=== PATIENT | female | born 1990 | race Caucasian/White ===

== ENCOUNTER → 2018-05-06 | Outpatient (CLI) | payer MEDICAID ==
[~2018-05-06] MED LIST: ACHD5005 PO; AMOX500C2 PO; BIRTH CONTROL PILL PO; CRUT1EAC7 MC; DCS100C PO; DIPH25TA82 PO; DOXY-13 PO; ETON1VAG; FRS325T PO; HYDR-3720 PO; HYDR1TAB86 PO; HYDR25TA4; IBP600T1 PO; IBP800T PO; IBUP-1780 PO; L-NO1TBD; LANS15CA PO; NFPRILOC40 PO; NORE0.357; OXYC-12 PO; POTA10CA43; PRD20T PO; PREN-105 PO; PREN1TAB25 PO; SULF1TAB38 PO
[2018-05-06 11:18] LABS: AMPHETAMINE SCREEN, URINE NEGATIVE (NEGATIVE); BARBITURATE SCREEN URINE NEGATIVE (NEGATIVE); BENZODIAZEPINES SCREEN URINE NEGATIVE (NEGATIVE); CANNABINOID SCREEN, URINE NEGATIVE (NEGATIVE); COCAINE SCREEN URINE NEGATIVE (NEGATIVE); METHADONE STAT NEGATIVE (NEGATIVE); METHAMPHETAMINE SCREEN URINE S NEGATIVE (NEGATIVE); OPIATE SCREEN URINE NEGATIVE (NEGATIVE); OXYCODONE STAT NEGATIVE (NEGATIVE); PROPOXYPHENE STAT NEGATIVE (NEGATIVE); TRICYCLIC ANTIDEPRESSANTS SCRE NEGATIVE (NEGATIVE)
[2018-05-06 12:37] LABS: BASOPHILS % (AUTO) 0 % (0-10); EOSINOPHILS # (AUTO) 0.3 10^3/uL (0.0-0.3); EOSINOPHILS % (AUTO) 3 % (0-10); HEMATOCRIT 44 % (35-52); HEMOGLOBIN 15.4 G/DL (11.5-16.0); LYMPHOCYTES % (AUTO) 21 % (12-44); MEAN CORPUSCULAR HEMOGLOBIN 30 PG (25-34); MEAN CORPUSCULAR HGB CONC 35 G/DL (32-36); MEAN CORPUSCULAR VOLUME 88 FL (80-99); MEAN PLATELET VOLUME 11.3 FL (7.4-10.4); MONOCYTES # (AUTO) 0.6 X 10^3 (0.0-1.0); MONOCYTES % (AUTO) 6 % (0-12); NEUTROPHILS # (AUTO) 6.5 X 10^3 (1.8-7.8); NEUTROPHILS % (AUTO) 69 % (42-75); PLATELET COUNT 127 10^3/uL (130-400); RED CELL DISTRIBUTION WIDTH 12.6 % (10.0-14.5); WHITE BLOOD COUNT 9.4 10^3/uL (4.3-11.0)
[2018-05-06 13:39] LABS: ALANINE AMINOTRANSFERASE 77 U/L (0-55); ALBUMIN 4.3 GM/DL (3.2-4.5); ALKALINE PHOSPHATASE 87 U/L (40-136); BILIRUBIN,TOTAL 0.5 MG/DL (0.1-1.0); BUN/CREATININE RATIO 24; CALCIUM 9.2 MG/DL (8.5-10.1); CARBON DIOXIDE 14 MMOL/L (21-32); CHLORIDE 109 MMOL/L (98-107); CREATININE SERUM 0.68 MG/DL (0.60-1.30); GFR ESTIMATED > 60; GLUCOSE 96 MG/DL (70-105); POTASSIUM 4.6 MMOL/L (3.6-5.0); SODIUM 136 MMOL/L (135-145); TOTAL PROTEIN 7.8 GM/DL (6.4-8.2)
== END ==
LOC: LAB 10:18
PROVIDERS: ATTEND Family Medicine
DX: B18.2 Chronic viral hepatitis C (principal); N91.2 Amenorrhea, unspecified
CPT/HCPCS: 36415; 80053; 80306; 84702; 85025

== ENCOUNTER 2018-07-22 19:41 | Observation (INO) | payer MEDICAID ==
[~2018-07-22] VITALS: Ht 165.1 cm; Wt 83.5 kg
[2018-07-22] MEDS ORDERED: LACTATED RINGERS 1,000 ML IV ONE ×3 (19:51→22:09)
[2018-07-22] MEDS ORDERED: TETANUS,DIPTH,PERTUSS P/F (BOOSTRIX) 0.5 ML VIAL IM ONE (20:00)
--- NOTE | 2018-07-22 21:13 | Diagnostic Imaging Report ---
INDICATION: Complaining of pain. Time of exam: 9:05 PM AP view of the pelvis shows normal femoral acetabular alignment. Joint spaces are maintained. No fractures are seen. SI joints and symphysis are non-widened. IMPRESSION: No acute bony abnormality is detected. Dictated by: Dictated on workstation # [id number]
--- NOTE | 2018-07-22 21:15 | Diagnostic Imaging Report ---
INDICATION: Found down. Time of exam: 9:03 PM Comparison is made with prior chest from 06/26/2008. The heart size is normal. The pulmonary vascularity is unremarkable. The lungs are clear. No infiltrate, effusion or pneumothorax is detected. Impression: No acute cardiopulmonary process is detected. Dictated by: Dictated on workstation # [id number]
--- NOTE | 2018-07-22 21:16 | Diagnostic Imaging Report ---
PROCEDURE: CT head and CT cervical spine without contrast. TECHNIQUE: Multiple contiguous axial images were obtained through the brain and cervical spine without the use of intravenous contrast. Sagittal and coronal reformations through the cervical spine were then performed. Auto Exposure Controls were utilized during the CT exam to meet ALARA standards for radiation dose reduction. INDICATION: Found down, complaining head and neck pain. CT head: The ventricles and sulci are within normal limits. No sulcal effacement, midline shift or hemorrhage is detected. Cisterns are patent. The visualized paranasal sinuses are clear. IMPRESSION: No acute intracranial process is detected. CT cervical spine: Alignment is normal. No fracture or subluxation is seen. Prevertebral tissues are normal. Odontoid is intact. IMPRESSION: No acute bony abnormality is detected. Dictated by: Dictated on workstation # [id number]
[2018-07-22 21:17] LABS: BILIRUBIN,URINE NEGATIVE (NEGATIVE); CLARITY,URINE CLEAR; COLOR,URINE YELLOW; GLUCOSE, URINE (UA) NEGATIVE (NEGATIVE); KETONES,URINE NEGATIVE (NEGATIVE); LEUKOCYTE ESTERASE ,URINE NEGATIVE (NEGATIVE); NITRITE,URINE NEGATIVE (NEGATIVE); PH,URINE 6.5 (5-9); PROTEIN,URINE NEGATIVE (NEGATIVE); UROBILINOGEN,URINE NORMAL (NORMAL)
--- NOTE | 2018-07-22 21:22 | NUR ---
less confused. more will folow commands and is calm.
[2018-07-22 21:24] LABS: BACTERIA,URINE NEGATIVE /HPF; RBC,URINE 0-2 /HPF; WBC,URINE RARE /HPF
--- NOTE | 2018-07-22 21:24 | NUR ---
report to Rosa Woodard RN
[2018-07-22 21:31] LABS: AMPHETAMINE SCREEN, URINE NEGATIVE (NEGATIVE); BARBITURATE SCREEN URINE NEGATIVE (NEGATIVE); BENZODIAZEPINES SCREEN URINE NEGATIVE (NEGATIVE); CANNABINOID SCREEN, URINE NEGATIVE (NEGATIVE); COCAINE SCREEN URINE NEGATIVE (NEGATIVE); METHADONE STAT NEGATIVE (NEGATIVE); METHAMPHETAMINE SCREEN URINE S NEGATIVE (NEGATIVE); OPIATE SCREEN URINE NEGATIVE (NEGATIVE); OXYCODONE STAT NEGATIVE (NEGATIVE); PROPOXYPHENE STAT NEGATIVE (NEGATIVE); TRICYCLIC ANTIDEPRESSANTS SCRE NEGATIVE (NEGATIVE)
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
[2018-07-22 21:43] LABS: BASOPHILS % (AUTO) 0 % (0-10); EOSINOPHILS # (AUTO) 0.1 10^3/uL (0.0-0.3); EOSINOPHILS % (AUTO) 1 % (0-10); HEMATOCRIT 44 % (35-52); HEMOGLOBIN 14.7 G/DL (11.5-16.0); LYMPHOCYTES # (AUTO) 2.8 X 10^3 (1.0-4.0); LYMPHOCYTES % (AUTO) 36 % (12-44); MEAN CORPUSCULAR HEMOGLOBIN 31 PG (25-34); MEAN CORPUSCULAR HGB CONC 34 G/DL (32-36); MEAN CORPUSCULAR VOLUME 91 FL (80-99); MEAN PLATELET VOLUME 11.3 FL (7.4-10.4); MONOCYTES # (AUTO) 0.5 X 10^3 (0.0-1.0); MONOCYTES % (AUTO) 7 % (0-12); NEUTROPHILS # (AUTO) 4.4 X 10^3 (1.8-7.8); NEUTROPHILS % (AUTO) 56 % (42-75); PLATELET COUNT 287 10^3/uL (130-400); RED CELL DISTRIBUTION WIDTH 11.9 % (10.0-14.5); WHITE BLOOD COUNT 7.9 10^3/uL (4.3-11.0)
[2018-07-22] MEDS ORDERED: ACETAMINOPHEN 500 MG TAB (TYLENOL) PO ONE (21:45)
[2018-07-22 22:06] LABS: ACETAMINOPHEN < 10 UG/ML (10-30); ALANINE AMINOTRANSFERASE 80 U/L (0-55); ALBUMIN 4.8 GM/DL (3.2-4.5); ALKALINE PHOSPHATASE 84 U/L (40-136); AMYLASE 49 U/L (25-125); BILIRUBIN,TOTAL 0.3 MG/DL (0.1-1.0); BUN/CREATININE RATIO 12; CALCIUM 9.8 MG/DL (8.5-10.1); CARBON DIOXIDE 18 MMOL/L (21-32); CHLORIDE 112 MMOL/L (98-107); CREATININE SERUM 0.69 MG/DL (0.60-1.30); GFR ESTIMATED > 60; GLUCOSE 88 MG/DL (70-105); LIPASE 25 U/L (8-78); MAGNESIUM 2.7 MG/DL (1.8-2.4); SODIUM 147 MMOL/L (135-145); TOTAL PROTEIN 7.8 GM/DL (6.4-8.2)
[2018-07-22] MEDS ORDERED: NICOTINE 21 MG (NICODERM) PATCH TD ONE (22:45)
[2018-07-23] VITALS (12 sets, daily range): BP systolic 102–130; BP diastolic 45–93
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
--- NOTE | 2018-07-23 00:05 | NUR ---
Pt reports "it feels like there is fiberglass on the outside of my neck." No abrasions or contusions or areas of concern noted on neck at this time.
--- NOTE | 2018-07-23 00:30 | NUR ---
Nicotine patch offered to pt, pt refused, states "I barely smoke, I usually only smoke when I drink."
--- NOTE | 2018-07-23 01:00 | NUR ---
Pt reports having pain, tylenol offered, pt refused, stating, "I don't want that. Can't I have anything stronger?" Therapeutic communication attempted, pt reports being "concerned about my liver". Pt reports will wait until morning to see if she can have something stronger.
[2018-07-23] MEDS ORDERED: NICOTINE 21 MG (NICODERM) PATCH ONE (01:07)
[2018-07-23] MEDS ORDERED: D5 1/2 NS W/KCL 20 MEQ/L 1,000 ML IV ONE (01:07)
[2018-07-23] MEDS: D5 1/2 NS W/KCL 20 MEQ/L 1,000 ML IV SCH ×2 (01:10→07:55)
--- NOTE | 2018-07-23 03:45 | NUR ---
Pt refusing morning chest X-ray and lab draws. This RN to room, attempted therapeutic communication. Pt states "I've been here before for 4 hours and no one has gotten blood, they are not going to be able to get blood from me." Therapeutic communication attempted again, discussed benefits of lab work, pt again refuses, states, "no, it hurts way too bad".
[2018-07-23] MEDS ORDERED: THIAMINE INJECTION 100 MG, FOLIC ACID INJECTION 1 MG, MAGNESIUM SULFATE 2 GM, VITAMIN M... IV SCH ×5 (04:05)
[2018-07-23] MEDS ORDERED: 1/2 NS IV SOLUTION 1,000 ML IV PRN (04:05)
[2018-07-23] MEDS ORDERED: ANTACID SUSP 30 ML UDC (MYLANTA) PO PRN (04:15)
[2018-07-23] MEDS ORDERED: ACETAMINOPHEN 500 MG TAB (TYLENOL) PO PRN (04:15)
[2018-07-23] MEDS ORDERED: SENNA W/DOCUSATE (SENOKOT S) TABLET PO PRN (04:15)
[2018-07-23] MEDS ORDERED: LORazepam INJ 2 MG/ML (ATIVAN) VIAL IV PRN (04:15)
[2018-07-23] MEDS ORDERED: D5 1/2 NS 1000 ML IV SOLUTION 1,000 ML IV PRN (04:15)
[2018-07-23] MEDS ORDERED: ONDANSETRON 4 MG/2 ML (SDV) Z0FRAN IV PRN ×2 (04:15)
[2018-07-23] MEDS ORDERED: LORazepam INJ 2 MG/ML (ATIVAN) VIAL IM/IV PRN (04:15)
[2018-07-23] MEDS ORDERED: ONDANSETRON 4 MG (ZOFRAN) ORAL DISSOLVE TAB SL PRN (04:15)
[2018-07-23] MEDS ORDERED: LORazepam 1 MG (ATIVAN) TAB PO PRN (04:15)
[2018-07-23] MEDS ORDERED: NICOTINE 21 MG (NICODERM) PATCH TD SCH (09:00)
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
--- NOTE | 2018-07-23 12:44 | NUR ---
SHAVONNE HI demonstrates understanding of discharge instructions and accurately returns instructions upon questioning. Copy of Post-Discharge Instructions and Medication Discharge Instructions given to patient. SHAVONNE HI is/ able to manage continuing needs after discharge. Patients belongings returned to patient. Skin dry and intact; no breakdown noted. Patient discharged from [facility] on at 1244 . SHAVONNE HI left floor via wheelchair, accompanied by this RN.
== END 2018-07-23 12:44 | disposition home or self-care (01) ==
LOC: EDUNIT# 19:41 → ER 19:41 → ICU 22:40
PROVIDERS: ADMIT Surgery; ATTEND Surgery
DX: S06.0X1A Concussion with loss of consciousness of 30 minutes or less, initial encounter (principal); S13.4XXA Sprain of ligaments of cervical spine, initial encounter; B19.20 Unspecified viral hepatitis C without hepatic coma; F17.210 Nicotine dependence, cigarettes, uncomplicated; F19.10 Other psychoactive substance abuse, uncomplicated; I10 Essential (primary) hypertension; F10.129 Alcohol abuse with intoxication, unspecified; Z79.899 Other long term (current) drug therapy
CPT/HCPCS: 36415; 70450; 71045; 72125; 72170; 80053; 80306; 80320; 80329; 81000; 82150; 83690; 83735; 84703; 85025; 87081; 90715; 93041; G0378

== ENCOUNTER 2021-04-24 18:43 | Emergency (ER) | payer MEDICAID ==
[~2021-04-24] VITALS: Ht 160 cm; Wt 82.0 kg
[2021-04-24 19:21] LABS: BILIRUBIN,URINE NEGATIVE (NEGATIVE); CLARITY,URINE CLOUDY; COLOR,URINE YELLOW; GLUCOSE, URINE (UA) NEGATIVE (NEGATIVE); KETONES,URINE NEGATIVE (NEGATIVE); LEUKOCYTE ESTERASE ,URINE NEGATIVE (NEGATIVE); NITRITE,URINE POSITIVE (NEGATIVE); PH,URINE 6.5 (5-9); PROTEIN,URINE NEGATIVE (NEGATIVE)
[2021-04-24 19:40] LABS: AMORPHOUS SEDIMENT,UR LARGE AMOR URATES /LPF; BACTERIA,URINE FEW /HPF
--- NOTE | 2021-04-24 19:45 | ED General ---
General Chief Complaint: OB < 20 WEEKS Stated Complaint: CRAMPING/VAG BLEEDING 12 WKS PREG Nursing Triage Note: PT AMB TO WITH C/O VAGINAL BLEEDING AND CRAMPING TODAY. PT RECENTLY FOUND OUT SHE WAS AND IS DUE IN OCTOBER SHE THINKS Source of Information: Patient, Family (Mother at bedside) Exam Limitations: No Limitations (ROBERT LEMOS STUDENT) History of Present Illness Date Seen by Provider: Apr 24, 2021 Time Seen by Provider: 19:28 Initial Comments Danita Marin is a 31 year old F presenting to ED with CC of vaginal bleeding and cramping. Pt notes that she was changing her clothes in the kitchen where she felt a "gush" of blood which fell onto the tile. Pt showed a picture of said blood. Pt notes this is her 3rd and is 12 weeks along (LMP Jan 24). She endorses continued vaginal bleeding and mild cramping; denies fever, nausea, vomiting, or shortness of breath. Pt notes she has an ultrasound scheduled by Dr. Lombardi (primary OB) for tomorrow. Pt does confirm intrauterine and positive heart tones via ultrasound performed at [facility]. Pt provided video of said ultrasound session. Pt denies any PMH, PSH includes 2 deliveries, tonsillectomy, and umbilical hernia repair. Pt denies current medication regimen, but endorses vitamin use. Timing/Duration: 1-3 Hours Severity: Mild Associated Systoms: Denies Symptoms (ROBERT LEMOS STUDENT) Allergies and Home Medications Allergies Coded Allergies: NKANo Known Allergies (Unverified Allergy, Mild, 07/22/18) Patient Home Medication List Home Medication List Reviewed: Yes (STEVE BAILON MD) Cephalexin (Cephalexin) 500 Mg Tablet, 500 MG PO TID Prescribed by: STEVE LOERA on 04/24/211952 Crutch (Crutch) 1 Each Each, 1 EACH PRN PRN for PAIN, (DME) Prescribed by: HOANG MIDDLETON on 03/05/16 115 Etonogestrel/Ethinyl Estradiol (Nuvaring Vaginal Ring) 1 Each Vag.ring, (Reported) Entered as Reported by: KEL FIELDS on 10/08/15 493 Hydrochlorothiazide (Hydrochlorothiazide) 25 Mg Tablet, (Reported) Entered as Reported by: KEL FIELDS on 10/08/152157 Potassium Chloride (Potassium Chloride) 10 Meq Capsule.er, (Reported) Entered as Reported by: KEL FIELDS on 10/08/152157 Review of Systems Review of Systems Constitutional: no symptoms reported EENTM: see HPI Respiratory: no symptoms reported Cardiovascular: no symptoms reported Gastrointestinal: RUQ, LUQ Genitourinary: other (vaginal bleeding) : Yes Expected Date of Delivery: Nov 05, 2021 LMP: Jan 24, 2021 Musculoskeletal: no symptoms reported Skin: no symptoms reported Psychiatric/Neurological: No Symptoms Reported Hematologic/Lymphatic: No Symptoms Reported Immunological/Allergic: no symptoms reported (ROBERT LEMOS Flared3[employer] STUDENT) Past Fcfbkqe-Ogncgu-Cugapn Hx Patient Social History Tobacco Use?: No Substance use?: No Alcohol Use?: No Pt feels they are or have been: No (ROBERT LEMOS [employer] STUDENT) Tobacco Use?: Yes Substance use?: Yes (prior history of polysubstance abuse per chart) (STEVE BAILON MD) Immunizations Up To Date Tetanus Booster (TDap): Unknown Influenza Vaccine Up-to-Date: No; Not Current (ROBERT LEMOS Flared3D STUDENT) Past Medical History Surgeries: Yes Abdominal, Section, Tonsillectomy Respiratory: No Cardiac: Yes Hypertension Neurological: No Expected Date of Delivery: Nov 05, 2021 Last Menstrual Period: Jan 24, 2021 Hx : 3 Hx Para: 2 Reproductive Disorders: No Female Reproductive Disorders: Denies Sexually Transmitted Disease: No Gastrointestinal: Yes (HEPATITIS C) Hepatitis Musculoskeletal: No Endocrine: No HEENT: No Cancer: No Psychosocial: Yes (POLYSUBSTANCE ABUSE) Integumentary: No Blood Disorders: Yes (HEP C) (ROBERT LEMOS Flared3D STUDENT) Surgeries: Yes Abdominal (hernia), Section, Tonsillectomy Respiratory: No Cardiac: No Neurological: No : Yes Reproductive Disorders: No Genitourinary: No Gastrointestinal: No Musculoskeletal: No Endocrine: No HEENT: No Cancer: No Psychosocial: No (STEVE BAILON MD) Family Medical History No Family History of: Abdominal aortic aneurysm Alcoholism Cancer Family history: Alzheimer's disease Family history: Arthritis Family history: Breast disease Family history: Cardiovascular disease Family history: Diabetes mellitus Family history: Gastrointestinal disease Family history: Thyroid disorder History of - respiratory disease Myocardial infarction Parkinson's disease Seizure disorder Stroke Physical Exam Vital Signs Vital Signs - First Documented 04/24/21 19:10 Temp 36.5 Pulse 74 Resp 17 B/P (MAP) 118/68 (85) Pulse Ox 99 O2 Delivery Room Air (STEVE BAILON MD) Vital Signs Capillary Refill : ([employer] STUDENT) Height, Weight, BMI Height: 5'5.00" Weight: 184lbs. 3.0oz. 83.182025iy; 32.00 BMI Method:Stated General Appearance: No Apparent Distress, WD/WN Neck: Supple Respiratory: Chest Non Tender, Lungs Clear, Normal Breath Sounds, No Accessory Muscle Use, No Respiratory Distress Cardiovascular: Regular Rate, Rhythm, No Edema, No Gallop, No Murmur Gastrointestinal: Soft, Tenderness (lower midline) Rectal: Deferred Neurologic/Psychiatric: Alert, Oriented x3, Normal Mood/Affect Skin: Normal Color, Warm/Dry (LEMOSmemory lane syndications) Progress/Results/Core Measures Suspected Sepsis SIRS Temperature: Pulse: 74 Respiratory Rate: 17 Blood Pressure 118 /68 Mean: 85 (Intrakr) Results/Orders Lab Results Laboratory Tests Test 04/24/21 19:15 Range/Units Urine Color YELLOW Urine Clarity CLOUDY Urine pH 6.5 5-9 Urine Specific [place] 1.020 1.016-1.022 Urine Protein NEGATIVE NEGATIVE Urine Glucose (UA) NEGATIVE NEGATIVE Urine Ketones NEGATIVE NEGATIVE Urine Nitrite POSITIVE H NEGATIVE Urine Bilirubin NEGATIVE NEGATIVE Urine Urobilinogen 0.2 < = 1.0 MG/DL Urine Leukocyte Esterase NEGATIVE NEGATIVE Urine RBC (Auto) NEGATIVE NEGATIVE Urine RBC NONE /HPF Urine WBC NONE /HPF Urine Crystals PRESENT H /LPF Urine Amorphous Sediment LARGE MARVIN URATES H /LPF Urine Bacteria FEW H /HPF Urine Casts NONE /LPF Urine Mucus NEGATIVE /LPF Urine Culture Indicated YES (STEVE BAILON MD) Micro Results Microbiology 04/24/21 Urine Culture - Final, Complete NO GROWTH (STEVE BAILON MD) My Orders Orders - STEVE BAILON MD Ua Culture If Indicated (04/24/21 19:02) Urine Culture (04/24/21 19:15) Cephalexin Capsule (Keflex Capsule) (04/24/21 20:00) (STEVE BAILON MD) Vital Signs/I&O 04/24/21 04/24/21 19:10 20:05 Temp 36.5 36.5 Pulse 74 70 Resp 17 17 B/P (MAP) 118/68 (85) 116/65 Pulse Ox 99 100 O2 Delivery Room Air Room Air (STEVE BAILON MD) Vital Signs/I&O Capillary Refill : (ROBERT LEMOS MED STUDENT) Blood Pressure Mean: 85 Departure Impression Primary Impression: Vaginal bleeding during Additional Impressions: Suprapubic pain Urinary tract infection Qualified Codes: N39.0 - Urinary tract infection, site not specified Disposition: HOME, SELF-CARE Condition: Improved Departure-Patient Inst. Decision time for Depature: 19:51 (STEVE BAILON MD) Referrals: SIERRA RODRÍGUEZ MD (PCP/Family) Primary Care Physician Patient Instructions: Urinary Tract Infection, Adult ED Add. Discharge Instructions: Complete the entire course of your antibiotics unless otherwise directed by your doctor after reviewing cultures. Drink plenty of clear liquids to stay well-hydrated. If you are having pain this evening you may take Tylenol (acetaminophen) up to 1000 mg every 6 hours as needed. Tylenol is considered safe in . It is important that you follow through with your ultrasound tomorrow and discuss findings with Dr. Lombardi. Return to the emergency room if you have worsening symptoms. Observe vaginal rest, meaning nothing in the vagina including intercourse, until you are cleared by Dr. Lombardi. All discharge instructions reviewed with patient and/or family. Voiced understanding. Scripts Cephalexin (Cephalexin) 500 Mg Tablet 500 MG PO TID, #20 TAB Prov: STEVE BAILON MD 04/24/21 Medical Student Attestation and Attending Note: I have personally interviewed and examined this patient along with Robert Lemos, MS 4. I have reviewed student documentation including history, physical, and assessments. I agree with the documentation except where otherwise noted. Exam: General: Alert, oriented, no acute distress, well developed HEENT: Normocephalic and atraumatic Heart: Regular rate and rhythm without murmur Lungs: Clear to auscultation bilaterally with normal effort Abdomen: Soft, minimal suprapubic tenderness, nondistended, normal bowel sounds Neuropsych: Alert, oriented, no focal deficits Skin: Warm and dry without rashes Patient already has an ultrasound scheduled for tomorrow. She also presents a video of an ultrasound she received during this at [facility] demonstrating a live intrauterine . She states the blood is definitely vaginal and not rectal or urethral. I offered a superficial genital exam to evaluate source of blood. She prefers to wait until the ultrasound tomorrow. Nursing staff noted no blood in the bathroom after patient urinated although the patient stated there was blood there. There is no significant blood in the urinalysis. There was subtle suggestion of urinary tract infection with nitrates present and few bacteria. She was treated with Keflex. See discharge instructions. (STEVE BAILON MD) Copy Copies To 1: ARACELY LOMBARDI MD, [employer] MED STUDENT Apr 24, 2021 19:45 STEVE BAILON MD Apr 24, 2021 19:55
[2021-04-24] MEDS ORDERED: CEPH500T PO (19:53)
[2021-04-24] MEDS ORDERED: CEPHALEXIN 250 MG (KEFLEX) CAP PO ONE (20:00)
[2021-04-24 20:05] VITALS: BP 116/65
== END 2021-04-24 20:07 | disposition home or self-care (01) ==
LOC: EDUNIT# 18:43 → ER 18:46
DX: O46.91 Antepartum hemorrhage, unspecified, first trimester (principal); O23.41 Unspecified infection of urinary tract in pregnancy, first trimester; I10 Essential (primary) hypertension; Z3A.12 12 weeks gestation of pregnancy
CPT/HCPCS: 81000; 87088; 99283

== ENCOUNTER 2021-10-09 05:40 | Outpatient (CLI) | payer MEDICAID ==
[~2021-10-09] VITALS: Ht 160 cm; Wt 90.9 kg
[~2021-10-09 05:40] MED LIST changes: +CEPH500T PO
[2021-10-13] MEDS ORDERED: PREN-8 PO (11:36)
== END 2021-10-13 11:45 | disposition home or self-care (01) ==
LOC: PREOP 05:40
PROVIDERS: ATTEND Obstetrics & Gynecology
DX: Z01.818 Encounter for other preprocedural examination (principal)

== ENCOUNTER 2021-10-17 05:30 | Inpatient (IN) | payer MEDICAID ==
[2021-10-17] VITALS (10 sets, daily range): BP systolic 104–141; BP diastolic 48–78
[~2021-10-17] VITALS: Ht 163 cm; Wt 90.8 kg
[~2021-10-17 05:30] MED LIST changes: +PREN-8 PO
[2021-10-17] MEDS ORDERED: D5 LR IV SOLUTION 1,000 ML IV SCH ×2 (05:45→10:00)
[2021-10-17] MEDS ORDERED: metroNIDAZOLE 500MG/100ML IVPB 100 ML IV ONE ×2 (05:45)
[2021-10-17] MEDS ORDERED: ceFAZolin 2 GM IV Premixed 50 ML IV ONE (05:45)
[2021-10-17] MEDS ORDERED: ceFAZolin INJECTION 2,000 MG in NS (IVPB) 50 ML IV ONE (05:45)
[2021-10-17] MEDS ORDERED: LACTATED RINGERS 1,000 ML IV PRN (06:00)
[2021-10-17] MEDS ORDERED: METOCLOPRAMIDE INJ 10 MG/2 ML (REGLAN) IV ONE (06:00)
[2021-10-17] MEDS ORDERED: FAMOTIDINE 20MG/2ML IV (PEPCID) IV ONE (06:00)
[2021-10-17] MEDS ORDERED: CITRIC ACID/SOB CIT (BICITRA) 30 ML UDC PO ONE (06:00)
[2021-10-17] MEDS ORDERED: CATHETER FLUSH 10 ML SYR IV PRN (06:00)
[2021-10-17] MEDS ORDERED: OXYTOCIN PRE-MIX DRIP 1,000 ML IV ONE (07:01)
[2021-10-17] MEDS ORDERED: fentaNYL INJ 100 MCG/2 ML AMP ONE ×2 (07:01→09:12)
[2021-10-17] MEDS ORDERED: ONDANSETRON 4 MG/2 ML (SDV) Z0FRAN ONE (07:01)
--- NOTE | 2021-10-17 07:20 | Discharge Inst-Surgical ---
Discharge Inst-Surgical Depart Medication/Instructions New, Converted or Re-Newed RX: Transmitted to Pharmacy Consults/Follow Up Patient Instructions: As directed Orders & Referrals Follow Up Appt: RTC 1 week for incision check With Dr. Arredondo Call to make follow up appt. for patient in [address] House. Wound Care: Remove suzan, apply benzoin and steri strips. Activity Per routine post instructions. Prescriptions for Percocet Motrin and Colace have been sent to patient's pharmacy from my clinic Diet as tolerated Patient may shower or tub bathe as desired. Continue home meds Activity Activity as Tolerated: No Diet Discharge Diet: No Restrictions JULIETH ARREDONDO MD Oct 17, 2021 07:20
[2021-10-17] MEDS: LACTATED RINGERS 1,000 ML IV PRN ×2 (08:09→09:10)
[2021-10-17 08:25] LABS: BASOPHILS % (AUTO) 0 % (0-10); EOSINOPHILS % (AUTO) 0 % (0-10); HEMATOCRIT 36 % (35-52); HEMOGLOBIN 11.8 g/dL (11.5-16.0); LYMPHOCYTES # (AUTO) 1.5 10^3/uL (1.0-4.0); LYMPHOCYTES % (AUTO) 17 % (12-44); MEAN CORPUSCULAR HEMOGLOBIN 29 pg (25-34); MEAN CORPUSCULAR HGB CONC 33 g/dL (32-36); MEAN CORPUSCULAR VOLUME 88 fL (80-99); MEAN PLATELET VOLUME 12.2 fL (9.0-12.2); MONOCYTES # (AUTO) 0.5 10^3/uL (0.0-1.0); MONOCYTES % (AUTO) 6 % (0-12); NEUTROPHILS # (AUTO) 6.4 10^3/uL (1.8-7.8); NEUTROPHILS % (AUTO) 76 % (42-75); PLATELET COUNT 162 10^3/uL (130-400); WHITE BLOOD COUNT 8.5 10^3/uL (4.3-11.0)
[2021-10-17 08:46] LABS: ALBUMIN 3.3 GM/DL (3.2-4.5); BILIRUBIN,TOTAL 0.3 MG/DL (0.1-1.0); CALCIUM 8.7 MG/DL (8.5-10.1); CREATININE SERUM 0.55 MG/DL (0.60-1.30); POTASSIUM 3.8 MMOL/L (3.6-5.0); TOTAL PROTEIN 5.9 GM/DL (6.4-8.2)
[2021-10-17] MEDS ORDERED: KETOROLAC 30 MG/ML VIAL ONE (09:23)
[2021-10-17] MEDS ORDERED: BUPIVACAINE 0.5% 30 ML (SENSORCAINE) VIAL ONE (09:23)
[2021-10-17] MEDS ORDERED: diphenhydrAMINE 50 MG/ML INJ (BENADRYL) IV PRN (09:45)
[2021-10-17] MEDS ORDERED: METOCLOPRAMIDE INJ 10 MG/2 ML (REGLAN) IV PRN (09:45)
[2021-10-17] MEDS ORDERED: NALOXONE 0.4 MG/ML 1 ML (NARCAN) VIAL IV PRN ×2 (09:45)
[2021-10-17] MEDS ORDERED: ONDANSETRON 4 MG/2 ML (SDV) Z0FRAN IV PRN (09:45)
[2021-10-17] MEDS ORDERED: fentaNYL INJ 100 MCG/2 ML AMP IVP PRN (10:00)
[2021-10-17] MEDS ORDERED: OXYTOCIN PRE-MIX DRIP 500 ML IV SCH (10:00)
[2021-10-17] MEDS ORDERED: ONDANSETRON 4 MG/2 ML (SDV) Z0FRAN IVP PRN (10:00)
[2021-10-17] MEDS ORDERED: TETANUS,DIPTH,PERTUSS P/F (BOOSTRIX) 0.5 ML VIAL IM ONE (10:00)
[2021-10-17] MEDS: oxyCODONE/APAP 10/325MG (PERCOCET 10) TABLET PO PRN ×3 (11:34→19:38)
[2021-10-17] MEDS: KETOROLAC 30 MG/ML VIAL IVP SCH ×2 (15:21→20:46)
--- NOTE | 2021-10-17 19:08 | OPERATIVE REPORT ---
DATE OF SERVICE: 10/17/2021 PREOPERATIVE DIAGNOSES: A 38 and 2/7 weeks' gestation with two previous sections, hepatitis C, and elevated blood pressure. POSTOPERATIVE DIAGNOSES: A 38 and 2/7 weeks' gestation with two previous sections, hepatitis C, and elevated blood pressure. OPERATIVE PROCEDURE: Repeat low transverse delivery of a viable male infant with Apgars of 9 and 9 at 1 and 5 minutes respectively, weight of 6 pounds 2 ounces, cord blood gas of 7.29 and a time of 08:57. OPERATIVE DESCRIPTION: With the patient in the supine position under satisfactory spinal analgesia, she was prepped and draped in the usual fashion for abdominal surgery. Heredia catheter was placed in the urinary bladder. A repeat Pfannenstiel incision was made through the skin with scalpel, the patient's abdomen was entered in the usual manner. Bladder retractor was placed in position. Clean scalpel was used to make a 4 cm hysterotomy incision transversely across the lower uterine segment. Copious clear fluid was released on hysterotomy. An incision was extended bluntly and then Choudhary forceps were applied to facilitate the delivery of a vigorous viable male . The had Apgars and stats as noted above. The infant was bulb suctioned on delivery of the head and completion of delivery. There was a shoulder cord that was slipped over the shoulder the baby delivered through. Baby was bulb suctioned again. On delivery, the umbilical cord was doubly clamped and cut and the passed to the pediatric nurse in attendance for delivery. Cord bloods were obtained. The placenta delivered spontaneously Mcintyre. It was normal with a 3-vessel cord. The uterus was exteriorized and interior wiped clean with a wet laparotomy sponge. Uterine incision was then closed with a running locked suture of 2-0 Vicryl. Hemostasis was complete. The uterus was returned to the abdominal cavity. All blood clot and debris were removed from the abdominal cavity. Sponge and needle counts correct and hemostasis was assured. The anterior parietal peritoneum was closed with running suture of 2-0 Vicryl. The rectus muscles were closed with 2-0 Vicryl, subcutaneous tissue was closed with 2-0 Vicryl, and the skin was stapled. Sponge and needle counts were correct on completion of the procedure. Blood loss was around 300 mL. The patient tolerated the procedure well and remained in the R. The baby had remained with the mother. CC: Dr. House - requested, unable to deliver. Job ID: [id number] DocumentID: [id number] Dictated Date: 10/17/2021 09:39:57 Informatics Educator Date: 10/17/2021 19:08:11 Dictated By: JULIETH RASHEED MD
[2021-10-17] MEDS: DOCUSATE SODIUM 100 MG (COLACE) CAP PO SCH (20:45)
[2021-10-17] MEDS ORDERED: DOCUSATE SODIUM 100 MG (COLACE) CAP PO SCH (21:00)
[2021-10-18 03:24] VITALS: BP 112/61
[2021-10-18] MEDS: KETOROLAC 30 MG/ML VIAL IVP SCH ×2 (03:35→20:02)
[2021-10-18] MEDS: oxyCODONE/APAP 10/325MG (PERCOCET 10) TABLET PO PRN ×4 (03:36→20:55)
[2021-10-18 09:13] VITALS: BP 125/65
[2021-10-18] MEDS: DOCUSATE SODIUM 100 MG (COLACE) CAP PO SCH ×2 (09:16→22:08)
[2021-10-18] MEDS: IBUPROFEN 800 MG (MOTRIN) TAB PO SCH ×3 (09:16→22:08)
--- NOTE | 2021-10-18 12:11 | Progress Note ---
Standard Progress Note Progress Notes/Assess & Plan Date Seen by a Provider: Oct 18, 2021 Time Seen by a Provider: 11:00 Progress/Assessment & Plan This patient is without complaint. She ia ambulating, voiding, rylie PO well, and has good pain control. Vital Signs Date Time Temp Pulse Resp B/P (MAP) Pulse Ox O2 Delivery O2 Flow Rate FiO2 10/18/21 09:13 36.6 75 18 125/65 (85) 98 Room Air 10/18/21 03:24 36.2 75 16 112/61 (78) 96 Room Air 10/17/21 23:45 36.1 54 16 115/65 (82) 96 Room Air 10/17/21 22:25 96 Room Air 10/17/21 19:45 36.1 59 16 141/78 (99) 98 Room Air 10/17/21 15:24 36.0 63 20 119/60 (79) 98 Room Air I & O 10/18/21 07:00 Intake Total 3350 ml Output Total 1500 ml Balance 1850 ml VSS/AFB Fundis is frim , below the umbilicus and non tender Ext show no C/C/E, there is no Yosef sign A/P POD 1 S/P repeat C/S doing well plan i for routine care Final Diagnosis 38 week repeat JULIETH RASHEED MD Oct 18, 2021 12:11
--- NOTE | 2021-10-18 12:28 | Anesthesia-Regional Post-Op ---
Regional Patient Condition Mental Status: Alert, Oriented x3 Circulation: Same as Pre-Op Headache: Absent Sensation: Full Recovery Motor Block: Absent Post Op Complications Complications None Follow Up Care/Instructions Patient Instructions None needed. Anesthesia/Patient Condition Patient is doing well, no complaints, stable vital signs, no apparent adverse anesthesia problems. No complications reported per nursing. GONZÁLEZ GUNN CRNA Oct 18, 2021 12:28
[2021-10-18 15:30] VITALS: BP 134/84
[2021-10-18 22:08] VITALS: BP 123/67
[2021-10-19 04:10] VITALS: BP 140/85
[2021-10-19] MEDS: IBUPROFEN 800 MG (MOTRIN) TAB PO SCH ×2 (04:11→10:21)
[2021-10-19 05:53] VITALS: BP 127/68
[2021-10-19] MEDS: DOCUSATE SODIUM 100 MG (COLACE) CAP PO SCH (08:04)
[2021-10-19] MEDS: oxyCODONE/APAP 10/325MG (PERCOCET 10) TABLET PO PRN ×2 (08:05→12:56)
[2021-10-19 09:00] VITALS: BP 118/56
[2021-10-19 13:00] VITALS: BP 131/79
== END 2021-10-19 14:30 | disposition home or self-care (01) | DRG 788 ==
LOC: LDRP 05:30
PROVIDERS: ADMIT Obstetrics & Gynecology; ATTEND Obstetrics & Gynecology
PROC: 10D00Z1 Extraction of Products of Conception, Low, Open Approach (ICD-10-PCS; principal; 2021-10-17 08:30)
DX: O34.211 Maternal care for low transverse scar from previous cesarean delivery (principal); O99.62 Diseases of the digestive system complicating childbirth; Z3A.40 40 weeks gestation of pregnancy; Z37.0 Single live birth; K21.9 Gastro-esophageal reflux disease without esophagitis
CPT/HCPCS: 36410; 36415; 76937; 80053; 85025; 86762; 86850; 86900; 86901; 94664

== ENCOUNTER 2022-08-26 06:17 | Emergency (ER) | payer MEDICAID ==
[~2022-08-26] VITALS: Ht 160 cm; Wt 86.2 kg
[~2022-08-26 06:17] MED LIST changes: -POTA10CA43; +POTA10CA44
[2022-08-26 06:22] VITALS: BP 138/95
[2022-08-26] MEDS ORDERED: NA S OS (06:33)
--- NOTE | 2022-08-26 06:34 | ED EENT ---
History of Present Illness General Chief Complaint: Eye Problems Stated Complaint: LEFT EYE PAIN/SWELLING/DRAINAGE/REDNESS Source: patient Exam Limitations: no limitations History of Present Illness Date Seen by Provider: August 26, 2022 Time Seen by Provider: 06:22 Initial Comments 32-year-old female who is otherwise healthy presents for left eye pain, drainage and redness. Symptoms started 2 days ago. She wears contacts but has not worn contacts in that eye since onset of symptoms. No injury. All other systems reviewed and negative except documented per HPI. Voice recognition software was used to help create this chart Allergies and Home Medications Allergies Coded Allergies: NKANo Known Allergies (Unverified Allergy, Mild, 07/22/18) Patient Home Medication List Home Medication List Reviewed: Yes Sulfacetamide/Prednisolone Sp (Sulf-Pred 10-0.23% Eye Drops) 10 %-0.23 % (0.25 %) Drops, 2 DROPS OS QID Prescribed by: KERRI BOWLES MD on 08/26/22 0633 Discontinued Medications Vit W-Ca,Fe,FA(<1 mg) ( Formula) 28 Mg Iron-800 Mcg Tablet, 1 EACH PO DAILY, (Reported) Discontinued Reason: No Longer Taking Entered as Reported by: DENIZ REYES on 10/13/21 1136 Last Action: Discontinued Review of Systems Review of Systems Constitutional: see HPI Past Avxnzhq-Ebcdpd-Amcozj Hx Patient Social History Tobacco Use?: Yes Substance use?: No Alcohol Use?: No Pt feels they are or have been: No Immunizations Up To Date Tetanus Booster (TDap): Unknown Seasonal Allergies Seasonal Allergies: No Past Medical History Surgery/Hospitalization HX: Surgeries: Yes (C/S X2, HERNIA) Abdominal, Section, Tonsillectomy Respiratory: No Currently Using CPAP: No Currently Using BIPAP: No Cardiac: No Hypertension Neurological: No Reproductive Disorders: No Female Reproductive Disorders: Denies Sexually Transmitted Disease: No Genitourinary: No Gastrointestinal: No (HX HEP C) Hepatitis Musculoskeletal: No Endocrine: No HEENT: No Cancer: No Psychosocial: No Integumentary: No Blood Disorders: Yes (HEP C) Family Medical History No Family History of: Abdominal aortic aneurysm Alcoholism Cancer Family history: Alzheimer's disease Family history: Arthritis Family history: Breast disease Family history: Cardiovascular disease Family history: Diabetes mellitus Family history: Gastrointestinal disease Family history: Thyroid disorder History of - respiratory disease Myocardial infarction Parkinson's disease Seizure disorder Stroke Physical Exam Vital Signs Vital Signs - First Documented 08/26/22 06:22 Temp 36.6 Pulse 88 Resp 18 B/P (MAP) 138/95 (109) Pulse Ox 99 O2 Delivery Room Air Height, Weight, BMI Height: 5'5.00" Weight: 184lbs. 3.0oz. 83.503726wa; 34.17 BMI Method:Stated General Appearance: WD/WN, no apparent distress Eyes: right eye normal inspection; left eye PERRL, left eye EOMI, left eye other (Left eye has injected sclera, periorbital swelling and matted, purulent drainage. Pupil is normal.) Cardiovascular: regular rate, rhythm, no murmur Respiratory: chest non-tender, normal breath sounds, no accessory muscle use Skin: normal color, warm/dry Progress/Results/Core Measures Results/Orders Vital Signs/I&O 08/26/22 06:22 Temp 36.6 Pulse 88 Resp 18 B/P (MAP) 138/95 (109) Pulse Ox 99 O2 Delivery Room Air Departure Communication (Admissions) Patient is hemodynamically stable. No evidence of injury, emergent medical condition at this time. She has what appears to be bacterial conjunctivitis. Will treat conservatively with eyedrops Impression Primary Impression: Conjunctivitis Qualified Codes: H10.32 - Unspecified acute conjunctivitis, left eye Disposition: 01 HOME, SELF-CARE Condition: Stable Departure-Patient Inst. Referrals: ARACELY LOMBARDI MD (PCP/Family) Primary Care Physician Patient Instructions: Conjunctivitis ([place]) (DC) Add. Discharge Instructions: You were seen in the emergency department today for left eye irritation. Use the eyedrops as prescribed. Alternate ibuprofen and Tylenol for pain. Turn to the emergency department for any severe concerns. Follow-up with your primary doctor for any nonemergent needs. All discharge instructions reviewed with patient and/or family. Voiced understanding. Scripts Sulfacetamide/Prednisolone Sp (Sulf-Pred 10-0.23% Eye Drops) 10 %-0.23 % (0.25 %) Drops 2 DROPS OS QID for 7 Days, #1 EACH Prov: KERRI BOWLES DO 08/26/22 KERRI BOWLES DO August 26, 2022 06:34
== END 2022-08-26 06:36 | disposition home or self-care (01) ==
LOC: EDUNIT# 06:17 → ER 06:19
DX: H10.9 Unspecified conjunctivitis (principal)
CPT/HCPCS: 99281